=== PATIENT | male | born 1960 | race Caucasian/White ===

== ENCOUNTER 2022-07-21 07:52 | Day surgery (SDC) | payer BC, OTHER ==
[~2022-07-21 07:52] MED LIST: Lactated Ringers 1,000 ML IV SCH
[2022-07-21] MEDS ORDERED: fentaNYL 100 MCG/2 ML SDV ONE (08:52)
[2022-07-21] MEDS ORDERED: Propofol 200 MG/20 ML SDV ONE ×2 (08:52→09:06)
[2022-07-21 09:52] VITALS: BP 133/88; PULSE 66
== END 2022-07-21 10:50 | disposition home or self-care (01) ==
LOC: VM.SDS 07:52
PROVIDERS: ATTEND Student in an Organized Health Care Education/Training Program
DX: Z12.11 Encounter for screening for malignant neoplasm of colon (principal); D12.2 Benign neoplasm of ascending colon; D12.3 Benign neoplasm of transverse colon; I10 Essential (primary) hypertension; E78.00 Pure hypercholesterolemia, unspecified; Z98.890 Other specified postprocedural states; Z88.8 Allergy status to other drugs, medicaments and biological substances; Z79.899 Other long term (current) drug therapy; Z79.82 Long term (current) use of aspirin; Z87.891 Personal history of nicotine dependence
CPT/HCPCS: 00812; 45380; 45385; J2704; J3010; J7120